=== PATIENT | female | born 1950 | race Caucasian/White ===

== ENCOUNTER 2023-06-28 09:11 | Outpatient (CLI) | payer MEDICARE, MEDICAID, SELFPAY ==
[2023-06-28] VITALS (10 sets, daily range): BP systolic 139–175; BP diastolic 75–113; PULSE 85–97; RESP 12–24; TEMP 36.4; O2SAT 95–99
[2023-06-28] MEDS: MIDAZOLAM 2 MG/2 ML VIAL IV (09:59)
--- NOTE | 2023-06-28 10:00 | DI.RAD.S_ITS ---
PROCEDURE: PAIN L/S TRANSFORAMINAL INJECT INDICATIONS: SPONDYLOSIS COMPARISON: None. FINDINGS: Fluoroscopic spot filming was performed to verify placement of spinal needles at the L5-S1 level(s), as labeled on the films. Appropriate location(s) of the needle tip(s) was confirmed by injection of iodinated contrast. IMPRESSION: Fluoro guidance was provided intraoperatively for left L5-S1 and S1 transforaminal [place] performed by the ordering physician. Dictated by: Evans An M.D. on 06/28/2023 at 15:27 Approved by: Evans An M.D. on 06/28/2023 at 15:31
[2023-06-28] MEDS: BUPIVACAINE 0.25% (PF) VIAL 2 ML INJ (10:01)
[2023-06-28] MEDS: iopamidoL 15 ML VIAL 3 ML INJ (10:02)
[2023-06-28] MEDS: DEXAMETHASONE 10 MG/ML VIAL 20 MG INJ (10:02)
--- NOTE | 2023-06-28 11:34 | P.PCN_ITS ---
Date/Time/Diagnoses Date of procedure: 06/28/23 Time of procedure: 10:00 Procedure Notes Physician: Scott De La Rosa Total Fluoroscopy time (seconds): 71 Total sedation minutes: 31 Procedure in detail & Post-procedure care: Left L5-S1 and left S1 Transforaminal Epidural Steroid Injection Indications: Rhonda is presenting for treatment of lumbar radiculopathy with low back and leg pain. Preoperative diagnosis: Lumbar radiculopathy Postoperative diagnosis: Same Focused Examination: Ax3 Mood and affect are normal Vital Signs: VSS ASA: 3 Consent: Following review of allergies and potential side effects/complications, including, but not necessarily limited to, infection, allergic reaction, local tissue breakdown, stroke, temporary or permanent nerve injury, paralysis, and possible , the patient indicated that they understood and agreed to proceed.? An informed consent document was signed by the patient, witnessed by a nurse and placed in the patient's chart.? Additionally, other treatment options including medications and physical therapy were reviewed with the patient. Discussed risk of injection while taking apixaban. Discussed signs and symptoms of epidural hematoma and patient voiced understanding. She was instructed to present to the emergency department with any new neurological symptoms. She again expressed understanding. Decision made to continue with injection while taking apixaban according to IPSIS recommendations and increased risk of embolism if we were to stop her anticoagulant. All questions were answered. Site was then marked. Anesthesia: After review of previous anesthetic history and IV conscious sedation, the patient was deemed safe to proceed with today's procedure with IV conscious sedation. IV sedation was accomplished with midazolam 2 mg administ ered by the RN after order by Dr. De La Rosa. Sedation was titrated to patient comfort during the course of the procedure. Patient remained responsive to all verbal commands. Position: Prone Monitoring: NIBP, Pulse oximetry, 3 lead EKG Needle used: 22G, 5 in spinal needle for the left L5-S1; 22 gauge, 3.5 in spinal needle for the left S1 Contrast: Isovue 300M Injectate: 7.5 mg Dexamethasone mixed with 0.25% bupivacaine 1 ml and normal saline 1 mL per site Technique: The skin was prepped with chloraprep and draped in a sterile fashion. Time out was performed as per protocol. Oxygen applied via NC. Skin and subcutaneous structures of the needle entry site were infiltrated with 3mL of lidocaine 1%. Under fluoroscopic guidance, using an ipsilateral oblique view,?a 22 gauge 5 inch needle was advanced to the base of the left L5?pedicle.? The needle was attempted to be advanced to the supero-posterior aspect of the neural foramen under lateral view.? Large osteophyte in the region necessitated removal of needle and increased obliquity with fluoroscopy. After these changes, the needle was advanced to the supero-posterior aspect of the neural foramen under lateral view. Oblique and AP views were rechecked. No paresthesias noted by the patient during needle placement. In AP view and utilizing real-time digital subtraction fluoroscopy, 2 ml contrast was slowly injected. Epidural spread was observed without evidence for intravascular nor intrathecal uptake. The above injectate was then administered without paresthesias and the needle was subsequently withdrawn. Skin and subcutaneous structures of the needle entry site for the left S1 posterior foramen were infiltrated with 3mL of lidocaine 1%. Under fluoroscopic guidance, using an ipsilateral oblique view,?a 22 gauge 3.5 inch needle was advanced to the superolateral border of the left S1 foramen.? The needle was advanced to the superolateral aspect of the neural foramen under lateral view.?AP views were rechecked. No paresthesias noted by the patient during needle placement. In AP view and utilizing real-time digital subtraction fluoroscopy, 2 ml contrast was slowly injected. Epidural spread was observed without evidence for intravascular nor intrathecal uptake. The above injectate was then administered, and the needle was subsequently withdrawn. Band-Aids applied to injection sites. EBL: less than 1 ml Complications: None Post Procedure: Patient was taken to the recovery and monitored. The patient was provided a Pain Log to continue to record the patient's response to the target- specific procedure prior to the patient's follow-up visit with the referring physician. Patient was stable upon discharge. Detailed post procedure instructions were provided. Patient was asked to call in the event of worsening pain, fever, weakness, numbness or bladder or bowel incontinence.
== END 2023-06-28 10:41 | disposition home or self-care (01) ==
LOC: RAD 09:13
PROVIDERS: PCP Family Medicine; Referring Provider Anesthesiology; Visit Provider Anesthesiology
DX: M54.16 Radiculopathy, lumbar region (principal)
CPT/HCPCS: 64483; 64484; 82962; 99152; 99153; J1100; J2250; J3490

== ENCOUNTER → 2023-09-06 13:03 | Outpatient (CLI) | payer MEDICARE, MEDICAID, SELFPAY ==
--- NOTE | 2023-09-06 13:05 | DI.RAD.S_ITS ---
PROCEDURE: XR LUMBAR SPINE MIN 4V INDICATIONS: BACK PAIN TECHNIQUE: 5 views of the lumbar spine were acquired, including bilateral oblique views. COMPARISON: Outside Film, CR, XR LUMBAR SPINE 2 OR 3 VIEWS, 03/07/2023, 15:17. FINDINGS: Bones: 5 nonrib-bearing vertebrae are present. Anterolisthesis of L4 on L5 measures 11 mm. There is extensive lower lumbar facet arthropathy. No vertebral body compression fractures. No suspicious bony lesions. Soft tissues: Overlying bowel gas pattern is normal. No suspicious soft tissue calcifications. Oblique images: No pars defects. IMPRESSION: 1. No acute bony abnormality. 2. Extensive lower lumbar facet arthropathy with stable anterolisthesis of L4 on L5 measuring 11 mm. Dictated by: Jose Ratliff M.D. on 09/06/2023 at 15:01 Approved by: Jose Ratliff M.D. on 09/06/2023 at 15:03
== END ==
PROVIDERS: PCP Family Medicine; Referring Provider Anesthesiology; Visit Provider Anesthesiology
DX: M48.062 Spinal stenosis, lumbar region with neurogenic claudication (principal); M47.26 Other spondylosis with radiculopathy, lumbar region; M43.16 Spondylolisthesis, lumbar region
CPT/HCPCS: 72110

== ENCOUNTER 2023-09-27 07:54 | Outpatient (CLI) | payer MEDICARE, MEDICAID, SELFPAY ==
[2023-09-27] VITALS (7 sets, daily range): BP systolic 142–197; BP diastolic 90–120; PULSE 79–98; RESP 12–20; TEMP 36.4; O2SAT 96–98
--- NOTE | 2023-09-27 08:30 | DI.RAD.S_ITS ---
PROCEDURE: PAIN L/S TRANSFORAMINAL INJECT INDICATIONS: RADICULOPATHY COMPARISON: [facility], , PAIN L/S TRANSFORAMINAL INJECT, 06/28/2023, 10:58. FINDINGS: Fluoroscopic spot filming was performed to verify placement of spinal needles at the left L5-S1 and S1 level(s), as labeled on the films. Appropriate location(s) of the needle tip(s) was confirmed by injection of iodinated contrast. IMPRESSION: Intraoperative guidance provided. Dictated by: Cleveland Holcomb M.D. on 09/27/2023 at 12:00 Approved by: Cleveland Holcomb M.D. on 09/27/2023 at 12:01
[2023-09-27] MEDS: MIDAZOLAM 2 MG/2 ML VIAL IV (08:39)
[2023-09-27] MEDS: DEXAMETHASONE 10 MG/ML VIAL 20 MG INJ (08:40)
[2023-09-27] MEDS: iopamidoL 15 ML VIAL 3 ML INJ (08:40)
--- NOTE | 2023-09-27 12:42 | P.PCN_ITS ---
Date/Time/Diagnoses Date of procedure: 09/27/23 Time of procedure: 08:30 Procedure Notes Physician: Scott De La Rosa Total Fluoroscopy time (seconds): 46 Total sedation minutes: 19 Procedure in detail & Post-procedure care: Left L5-S1 and left S1 Transforaminal Epidural Steroid Injection Indications: Rhonda is presenting for treatment of lumbar radiculopathy with low back and leg pain. Preoperative diagnosis: Lumbar radiculopathy Postoperative diagnosis: Same Focused Examination: Ax3 Mood and affect are normal Vital Signs: VSS ASA: 3 Consent: Following review of allergies and potential side effects/complications, including, but not necessarily limited to, infection, allergic reaction, local tissue breakdown, stroke, temporary or permanent nerve injury, paralysis, and possible , the patient indicated that they understood and agreed to proceed.? An informed consent document was signed by the patient, witnessed by a nurse and placed in the patient's chart.? Additionally, other treatment options including medications and physical therapy were reviewed with the patient. All questions were answered. Site was then marked. Discussed risk of injection while taking apixaban. Discussed signs and symptoms of epidural hematoma and patient voiced understanding. She was instructed to present to the emergency department with any new neurological symptoms. She again expressed understanding. Decision made to continue with injection while taking apixaban according to IPSIS recommendations and increased risk of embolism if we were to stop her anticoagulant. Anesthesia: After review of previous anesthetic history and IV conscious sedation, the patient was deemed safe to proceed with today's procedure with IV conscious sedation. IV sedation was accomplished with midazolam 2 mg administered by the RN after order by Dr. De La Rosa. Sedation was titrated to patient comfort during the course of the procedure. Patient remained responsive to all verbal commands. Position: Prone Monitoring: NIBP, Pulse oximetry, 3 lead EKG Needle used: 22 gauge, 3.5 (S1) and 5 (L5) inch spinal needle Contrast: Isovue 300M Injectate: 7.5 mg Dexamethasone mixed with 1% lidocaine 1 ml and normal saline 1 mL per level Technique: The skin was prepped with chloraprep and draped in a sterile fashion. Time out was performed as per protocol. Oxygen applied via NC. Skin and subcutaneous structures of the needle entry site were infiltrated with 3mL of lidocaine 1%. Under fluoroscopic guidance, using an ipsilateral oblique view,?a 22 gauge 5 inch needle was advanced to the base of the left L5?pedicle.? The needle was advanced to the superio-posterior aspect of the neural foramen under lateral view.? Oblique and AP views were rechecked. No paresthesias noted by the patient during needle placement. In AP view and utilizing real-time digital subtraction fluoroscopy, 2 ml contrast was slowly injected. Epidural spread was observed without evidence for intravascular nor intrathecal uptake. Contrast spread was seen craniocaudally. The above injectate was then administered without paresthesias and the needle was subsequently withdrawn. Skin and subcutaneous structures of the needle entry site were infiltrated with 3mL of lidocaine 1%. Under fluoroscopic guidance, using an ipsilateral oblique view,?a 22 gauge 3.5 inch needle was advanced to the superolateral border of the left S1 foramen.? The needle was advanced to the superolateral aspect of the neural foramen under lateral view.?AP views were rechecked. No paresthesias noted by the patient during needle placement. In AP view and utilizing real-time digital subtraction fluoroscopy, 2 ml contrast was slowly injected. Epidural spread was observed without evidence for intravascular nor intrathecal uptake. The above injectate was then administered, and the needle was subsequently withdrawn. Band-Aids applied to injection sites. EBL: less than 1 ml Complications: None Post Procedure: Patient was taken to the recovery and monitored. The patient was provided a Pain Log to continue to record the patient's response to the target- specific procedure prior to the patient's follow-up visit with the referring physician. Patient was stable upon discharge. Detailed post procedure instructions were provided. Patient was asked to call in the event of worsening pain, fever, weakness, numbness or bladder or bowel incontinence.
== END 2023-09-27 09:13 | disposition home or self-care (01) ==
LOC: RAD 07:54
PROVIDERS: PCP Family Medicine; Referring Provider Anesthesiology; Visit Provider Anesthesiology
DX: M54.16 Radiculopathy, lumbar region (principal)
CPT/HCPCS: 64483; 64484; 82962; 99152; J1100; J2250

== ENCOUNTER 2023-11-29 15:09 | Outpatient (CLI) | payer MEDICARE, MEDICAID, SELFPAY ==
[2023-11-29] VITALS (7 sets, daily range): BP systolic 174–196; BP diastolic 88–129; PULSE 94–101; RESP 10–18; TEMP 36; O2SAT 95–99
--- NOTE | 2023-11-29 16:00 | DI.RAD.S_ITS ---
PROCEDURE: PAIN L INTERLAMINAR/CAUDAL INJ INDICATIONS: radiculopathy COMPARISON: None. FINDINGS: Fluoroscopic spot filming was performed to verify placement of spinal needles at the L5-S1 level(s), as labeled on the films. Appropriate location(s) of the needle tip(s) was confirmed by injection of iodinated contrast. IMPRESSION: Fluoroscopic guidance utilized for an epidural injection at L5-S1. Dictated by: Horace Dobbs M.D. on 11/30/2023 at 8:43 Approved by: Horace Dobbs M.D. on 11/30/2023 at 8:43
[2023-11-29] MEDS: MIDAZOLAM 2 MG/2 ML VIAL IV (16:02)
[2023-11-29] MEDS: DEXAMETHASONE 10 MG/ML VIAL INJ (16:07)
[2023-11-29] MEDS: iopamidoL 15 ML VIAL 3 ML INJ (16:07)
--- NOTE | 2023-11-29 16:25 | P.PCN_ITS ---
Date/Time/Diagnoses Date of procedure: 11/29/23 Time of procedure: 16:00 Procedure Notes Physician: Scott De La Rosa Total Fluoroscopy time (seconds): 12 Total sedation minutes: 6 Procedure in detail & Post-procedure care: L5-S1 Interlaminar Epidural Steroid Injection Indications: Rhonda is presenting for treatment of lumbar radiculopathy with low back and leg pain. Preoperative diagnosis: Lumbar radiculopathy Postoperative diagnosis: Same Focused Examination: Ax3 Mood and affect are normal Vital Signs: VSS ASA: 3 Consent: Following review of allergies and potential side effects/complications, including, but not necessarily limited to, infection, allergic reaction, local tissue breakdown, stroke, temporary or permanent nerve injury, paralysis, and possible , the patient indicated that they understood and agreed to pr oceed.? An informed consent document was signed by the patient, witnessed by a nurse and placed in the patient's chart.? Additionally, other treatment options including medications and physical therapy were reviewed with the patient. All questions were answered. Site was then marked. Anesthesia: After review of previous anesthetic history and IV conscious sedation, the patient was deemed safe to proceed with today's procedure with IV conscious sedation. IV sedation was accomplished with midazolam 2 mg administered by the RN after order by Dr. De La Rosa. Sedation was titrated to patient comfort during the course of the procedure. Patient remained responsive to all verbal commands. Position: Prone Monitoring: NIBP, Pulse oximetry, 3 lead EKG Needle used: 18 G 3.5? Tuohy Contrast: Isovue 300M Injectate: Dexamethasone 10 mg with 1% lidocaine 2 mL Technique: The skin was prepped with chloraprep and then draped in a sterile fashion. Time out was performed as per protocol. Oxygen applied via NC. Skin and subcutaneous structures of the needle entry site was then infiltrated with 3 mL of lidocaine 1%. Under AP, lateral and contralateral oblique fluoroscopic control, the Tuohy needle was guided into the L5-S1 epidural space. The space was accessed with loss of resistance technique. Isovue 300M was then injected and the spread was consistent with the epidural space. There was no evidence for intravascular or intrathecal uptake. After negative aspiration, the above- mentioned injectate was then slowly administered and the needle withdrawn. The patient expressed no unusual discomfort or paresthesias during the injection. Band-Aids applied to injection sites. EBL: less than 1 ml Complications: None Post Procedure: Patient was taken to the recovery and monitored. The patient was provided a Pain Log to continue to record the patient's response to the target- specific procedure prior to the patient's follow-up visit with the referring physician. Patient was stable upon discharge. Detailed post procedure instructions were provided. Patient was asked to call in the event of worsening pain, fever, weakness, numbness or bladder or bowel incontinence.
== END 2023-11-29 16:40 | disposition home or self-care (01) ==
LOC: RAD 15:10
PROVIDERS: PCP Family Medicine; Referring Provider Anesthesiology; Visit Provider Anesthesiology
DX: M54.16 Radiculopathy, lumbar region (principal)
CPT/HCPCS: 62323; 82962; J1100; J2250